=== PATIENT | female | born 1970 ===

== ENCOUNTER 2017-06-27 19:53 | Emergency (ER) | payer OTHER ==
[2017-06-27 19:53] VITALS: BMI 26.2
[2017-06-27 20:09] VITALS: RESP 16; TEMP 97.9
[2017-06-27] MEDS ORDERED: Oxycodone/Acetaminophen 5/325 mg Tab PO STA (21:08)
[2017-06-27] MEDS ORDERED: Oxycodone/Acetaminophen 5/325 mg Tab ONE (21:11)
--- NOTE | 2017-06-27 21:27 | C.PDOC ---
History Of Present Illness 46 year old female presents to the ED c/o right upper arm and shoulder pain for the past week. Patient reports a questionable history of right elbow fracture approximately a year ago. Patient states she feels the elbow fracture might be causing her symptoms today. Patient denies weakness, numbness, injury, fall , trauma. Time Seen by Provider: 06/27/17 20:02 Chief Complaint (Nursing): Upper Extremity Problem/Injury History Per: Patient History/Exam Limitations: no limitations Onset/Duration Of Symptoms: Days Current Symptoms Are (Timing): Still Present Quality: "Pain" Exacerbating Factor(s): Nothing Recent travel outside of the [place]: No Additional History Per: Patient Past Medical History Reviewed: Historical Data, Nursing Documentation, Vital Signs Vital Signs: Last Vital Signs Temp 97.9 F 06/27/17 20:02 Pulse 82 06/27/17 21:28 Resp 16 06/27/17 21:28 BP 158/100 H 06/27/17 21:28 Pulse Ox 99 06/27/17 22:21 - Medical History PMH: No Chronic Diseases Surgical History: No Surg Hx Family History: States: Unknown Family Hx - Social History Hx Alcohol Use: No Hx Substance Use: No - Immunization History Hx Tetanus Toxoid Vaccination: No Hx Influenza Vaccination: No Hx Pneumococcal Vaccination: No Review Of Systems Constitutional: Negative for: Fever, Chills Cardiovascular: Negative for: Chest Pain Respiratory: Negative for: Shortness of Breath Gastrointestinal: Negative for: Nausea Musculoskeletal: Positive for: Shoulder Pain, Arm Pain Skin: Negative for: Rash Neurological: Negative for: Weakness, Numbness Physical Exam - Physical Exam Appears: Non-toxic, No Acute Distress Skin: Normal Color, Warm, Dry Head: Atraumatic, Normacephalic Eye(s): bilateral: Normal Inspection Oral Mucosa: Moist Neck: Normal ROM, Supple Chest: Symmetrical Cardiovascular: Rhythm Regular Respiratory: Normal Breath Sounds, No Rales, No Wheezing Extremity: No Normal ROM (Limited ROM right arm and shoulder secondary to pain) , Tenderness (palpation right shoulder and upper arm), Capillary Refill (< 2 seconds), No Deformity, No Swelling Extremity: Bilateral: Atraumatic, Normal Color And Temperature Pulses: Left Radial: Normal, Right Radial: Normal Neurological/Psych: Oriented x3, Normal Motor, Normal Sensation Gait: Steady ED Course And Treatment O2 Sat by Pulse Oximetry: 99 (On RA) Pulse Ox Interpretation: Normal Progress Note: Patient was given Toradol IM and Valium PO with minimal improvement, patient still c/o moderate pain. Percocet PO was give for the pain and patient was advised to follow up with PMD for further evaluation. X-Ray was not deemed necessary at this time and patient's arm was placed on a sling by the RN Disposition - Disposition Disposition: HOME/ ROUTINE Disposition Time: 21:26 Condition: STABLE Additional Instructions: Please follow up with PMD Take meds as directed Return to ER if worse Prescriptions: Cyclobenzaprine [Cyclobenzaprine HCl] 10 mg PO HS #10 tab Naproxen [Naprosyn] 1 tab PO BID PRN #25 tab PRN Reason: Pain Instructions: Arm Pain (ED) Forms: [employer] (Iranian) Print Language: MARTINIQUAIS - Clinical Impression Clinical Impression: Right arm pain, Right shoulder pain - PA / DRIER FEEDER / Resident Statement MD/DO has reviewed & agrees with the documentation as recorded. - Scribe Statement The provider has reviewed the documentation as recorded by the Scribe Wang Robledo All medical record entries made by the Scribrose were at my direction and personally dictated by me. I have reviewed the chart and agree that the record accurately reflects my personal performance of the history, physical exam, medical decision making, and the department course for this patient. I have also personally directed, reviewed, and agree with the discharge instructions and disposition.
[2017-06-27 21:29] VITALS: BP 158/100; PULSE 82
[2017-06-27 21:30] VITALS: O2SAT 99
== END 2017-06-27 21:34 | disposition home or self-care (01) ==
LOC: C.ER 19:53
DX: M25.511 Pain in right shoulder (principal); M79.601 Pain in right arm
CPT/HCPCS: 96374; 99283; J1885

== ENCOUNTER 2017-11-30 14:17 | Emergency (ER) | payer OTHER ==
[2017-11-30 14:17] VITALS: BMI 26.2
[2017-11-30 14:33] VITALS: BP 160/90; PULSE 77; RESP 20; TEMP 98.5; O2SAT 98
[2017-11-30 15:12] LABS: URINE BACTERIA RARE (<OCC); URINE BILIRUBIN NEGATIVE (NEGATIVE); URINE BLOOD 1+ (NEGATIVE); URINE CLARITY Clear (Clear); URINE COLOR Yellow (YELLOW); URINE GLUCOSE (UA) NORMAL (Normal); URINE LEUKOCYTE ESTERASE NEG Leu/uL (Negative); URINE PROTEIN NEGATIVE (NEGATIVE); URINE UROBILINOGEN NORMAL mg/dL (0.2-1.0)
[2017-11-30 15:14] LABS: HCG,QUALITATIVE URINE NEGATIVE (NEGATIVE)
--- NOTE | 2017-11-30 15:23 | C.PDOC ---
History Of Present Illness 47 year old female presents to the ER with a complaint of right flank pain for the past 4 days, associated with a headache. Patient has been taking tylenol at home with minimal relief. Denies urinary symptoms, recent trauma, heavy lifting , weakness, or numbness. Time Seen by Provider: 11/30/17 14:43 Chief Complaint (Nursing): Back Pain History Per: Patient History/Exam Limitations: no limitations Onset/Duration Of Symptoms: Days Current Symptoms Are (Timing): Still Present Quality Of Discomfort: Unable To Describe Previous Symptoms: None Associated Symptoms: None Exacerbating Factor(s): Nothing Recent travel outside of the [place]: No Past Medical History Reviewed: Historical Data, Nursing Documentation, Vital Signs Vital Signs: Last Vital Signs Temp 98.5 F 11/30/17 14:30 Pulse 77 11/30/17 14:30 Resp 20 11/30/17 14:30 BP 160/90 H 11/30/17 14:30 Pulse Ox 98 11/30/17 15:30 - Medical History PMH: HTN Family History: States: Unknown Family Hx - Social History Hx Alcohol Use: No Hx Substance Use: No - Immunization History Hx Tetanus Toxoid Vaccination: No Hx Influenza Vaccination: No Hx Pneumococcal Vaccination: No Review Of Systems Constitutional: Negative for: Fever, Chills Gastrointestinal: Negative for: Nausea, Vomiting Genitourinary: Negative for: Dysuria, Hematuria Musculoskeletal: Positive for: Back Pain (Right flank) Neurological: Positive for: Headache. Negative for: Weakness, Numbness Physical Exam - Physical Exam Appears: Non-toxic, Other (Uncomfortable) Skin: Normal Color, Warm, Dry Head: Atraumatic, Normacephalic Eye(s): bilateral: Normal Inspection Oral Mucosa: Moist Chest: Symmetrical, No Tenderness Cardiovascular: Rhythm Regular Respiratory: Normal Breath Sounds, No Rales, No Rhonchi, No Wheezing Gastrointestinal/Abdominal: Soft, No Tenderness Back: No CVA Tenderness Neurological/Psych: Oriented x3, Normal Speech, Other (No focal deficits) ED Course And Treatment O2 Sat by Pulse Oximetry: 98 (room air) Pulse Ox Interpretation: Normal Medical Decision Making Medical Decision Making: Impression: 47 year old female with right flank pain. Plan: * CT abd/pel * Blood work * Urinalysis Disposition - Disposition Forms: [employer] (Angolan) - PA / COMBAT CONTROL / Resident Statement MD/DO has reviewed & agrees with the documentation as recorded. - Scribe Statement The provider has reviewed the documentation as recorded by the Scribe Kyle Wilson All medical record entries made by the Nandaibrose were at my direction and personally dictated by me. I have reviewed the chart and agree that the record accurately reflects my personal performance of the history, physical exam, medical decision making, and the department course for this patient. I have also personally directed, reviewed, and agree with the discharge instructions and disposition.
--- NOTE | 2017-11-30 15:32 | C.PDOC ---
History Of Present Illness 47 year old female presents to the ER with a complaint of right flank pain for the past 4 days, associated with a headache. Patient has been taking tylenol at home with minimal relief. Denies urinary symptoms, recent trauma, heavy lifting , weakness, or numbness. Time Seen by Provider: 11/30/17 14:43 Chief Complaint (Nursing): Back Pain History Per: Patient History/Exam Limitations: no limitations Onset/Duration Of Symptoms: Days Current Symptoms Are (Timing): Still Present Quality Of Discomfort: Unable To Describe Previous Symptoms: None Associated Symptoms: None Exacerbating Factor(s): Nothing Recent travel outside of the [place]: No Past Medical History Reviewed: Historical Data, Nursing Documentation, Vital Signs Vital Signs: Last Vital Signs Temp 98.5 F 11/30/17 14:30 Pulse 77 11/30/17 14:30 Resp 20 11/30/17 17:07 BP 160/90 H 11/30/17 14:30 Pulse Ox 98 11/30/17 16:40 - Medical History PMH: HTN Family History: States: Unknown Family Hx - Social History Hx Alcohol Use: No Hx Substance Use: No - Immunization History Hx Tetanus Toxoid Vaccination: No Hx Influenza Vaccination: No Hx Pneumococcal Vaccination: No Review Of Systems Constitutional: Negative for: Fever, Chills Cardiovascular: Negative for: Palpitations Respiratory: Negative for: Cough, Shortness of Breath Gastrointestinal: Positive for: Constipation (2 days). Negative for: Vomiting, Abdominal Pain, Diarrhea Genitourinary: Negative for: Dysuria, Hematuria Musculoskeletal: Positive for: Other (Right flank pain) Neurological: Negative for: Weakness, Numbness Physical Exam - Physical Exam Appears: Non-toxic, Other (Uncomfortable) Skin: Normal Color, Warm, Dry Head: Atraumatic, Normacephalic Eye(s): bilateral: Normal Inspection Oral Mucosa: Moist Neck: Normal ROM Chest: Symmetrical, No Tenderness Cardiovascular: Rhythm Regular, No Murmur Respiratory: Normal Breath Sounds, No Rales, No Rhonchi, No Wheezing Gastrointestinal/Abdominal: Bowel Sounds (active), Soft, No Tenderness, No Distention, No Guarding Back: No CVA Tenderness Extremity: Bilateral: Atraumatic, Normal ROM Neurological/Psych: Oriented x3, Normal Speech, Other (No focal deficits) ED Course And Treatment - Laboratory Results Result Diagrams: 11/30/17 15:42 11/30/17 15:42 O2 Sat by Pulse Oximetry: 98 (Room air) Pulse Ox Interpretation: Normal - CT Scan/US abd/pelvis Other Rad Studies (CT/US): Read By Radiologist, Radiology Report Reviewed CT/US Interpretation: Accession No. : [id number]. Patient Name / ID : JOE TORRES / [id number]. Exam Date : 11/30/2017 15:47:06 ( Approved ). Study Comment : Sex / Age : F / 47Y. Creator : Roseanne Chowdhury. Dictator : Ink Maker : Equipment Operator [employer] : Eitan Watson MD. Approver2 : Report Date : 09/2017 15:51:24. My Comment : . PROCEDURE: CT Abdomen and Pelvis without intravenous contrast. HISTORY: The right-sided flank pain. COMPARISON : None. TECHNIQUE: Technique. Contrast dose: Radiation dose: Total exam DLP = mGy-cm. This CT exam was performed using one or more of the following dose reduction techniques: Automated exposure control, adjustment of the mA and/ or kV according to patient size, and/or use of iterative reconstruction technique. FINDINGS: LOWER THORAX: Lung bases clear. No infiltrate effusion or basilar pneumothorax. Heart size within range of normal. No significant pericardial effusion. There is a tiny hiatal hernia. LIVER: Liver exhibits normal size measuring approximately 16 cm in CC dimension. No obvious hepatic masses or collections seen on this noncontrast study. No significant intrahepatic biliary ductal dilatation. GALLBLADDER AND BILE DUCTS: Gallbladder is physiologically distended. No evidence of intraluminal gallbladder calculi. PANCREAS: Unremarkable. No gross lesion or ductal dilatation. SPLEEN: Unremarkable. ADRENALS: Unremarkable. No mass. KIDNEYS AND URETERS: The kidneys exhibit relatively symmetric size. No evidence of nephrolithiasis or hydronephrosis. No obvious renal masses or collections. VASCULATURE: Unremarkable. No aortic aneurysm. BOWEL: Evaluation of the bowel is limited due to the lack of oral contrast material. Stomach is incompletely distended with food debris liquid and air. Visualized loops of small bowel exhibit normal contour and caliber. No evidence of acute mechanical small bowel obstruction. Stool and air seen throughout the large bowel. No definitive abnormal mural wall thickening. APPENDIX: Normal-appearing appendix best seen on axial image number [id number]. No periappendiceal inflammatory changes. PERITONEUM: Unremarkable. No free fluid. No free air. . There is a moderate-sized fat containing left inguinal hernia. LYMPH NODES: Unremarkable. No enlarged lymph nodes. BLADDER: Urinary bladder is incompletely distended which presumably accounts for slight thick-walled appearance. Rule out cystitis. . Clinical correlation with urinalysis recommended. REPRODUCTIVE: Uterus and adnexal structures appear grossly unremarkable so far as can be seen. BONES: No acute fracture. OTHER FINDINGS : None. IMPRESSION: No acute intra abdominal pathology. No evidence of nephrolithiasis or hydronephrosis. Urinary bladder incompletely cyst distended which presumably accounts for thick-walled appearance. The possibility of a cystitis not excluded. Correlation with urinalysis recommended. No evidence of acute appendicitis. Medical Decision Making Medical Decision Making: Impression: 47 year old female with right flank pain. Plan: * CT abd/pel * Blood work * Urinalysis Progress: Labs reviewed. No leukocytosis or bands. No electrolyte abnormality. Glucose slightly elevated. Urine shows blood. CT IMPRESSION: No acute intra abdominal pathology. No evidence of nephrolithiasis or hydronephrosis. Urinary bladder incompletely cyst distended which presumably accounts for thick-walled appearance. The possibility of a cystitis not excluded. Correlation with urinalysis recommended. No evidence of acute appendicitis. On re-eval, patient is resting on stretcher in no distress. I explained results of labs and CT findings. I provided copy of reports. Patient remained afebrile with stable vital signs. Abdomen soft and non-tender. Patient to be discharged home with Rx. Disposition Counseled Patient/Family Regarding: Diagnosis, Need For Followup, Rx Given - Disposition Referrals: [facility] [Outside] Disposition: HOME/ ROUTINE Disposition Time: 17:00 Condition: STABLE Additional Instructions: Rx sent to [facility] Your labs and CT scan of abdomen were normal Take Pain medicine as needed Follow up with your doctor for further evaluation and care Rx enviado a la farmacia de [facility] laboratorios y tomografa computarizada del abdomen fueron normales [place] el medicamento para el dolor segn sea necesario Enrique un seguimiento con vaughan mdico para marce evaluacin y cuidado adicional Prescriptions: Ibuprofen [Motrin] 600 mg PO Q8 #30 tab Instructions: Low Back Pain (DC) Forms: [employer] (Guamanian) Print Language: TAJIK - POA Present On Arrival: None - Clinical Impression Clinical Impression: Right flank pain - PA / SENIOR SAFETY SUPPORT MANAGER / Resident Statement MD/DO has reviewed & agrees with the documentation as recorded. - Scribe Statement The provider has reviewed the documentation as recorded by the Scribe Kyle Wilson All medical record entries made by the Scribe were at my direction and personally dictated by me. I have reviewed the chart and agree that the record accurately reflects my personal performance of the history, physical exam, medical decision making, and the department course for this patient. I have also personally directed, reviewed, and agree with the discharge instructions and disposition.
[2017-11-30 15:48] LABS: EOS # 0.3 K/uL (0.0-0.7); EOS % 5.9 % (0.0-4.0); HEMOGLOBIN 14.1 g/dL (11.0-16.0); LYMPH # 1.1 K/uL (1.0-4.3); LYMPH % 24.7 % (20.0-40.0); MEAN CORPUSCULAR HEMOGLOBIN 30.2 pg (27.0-31.0); MEAN CORPUSCULAR HGB CONC 34.3 g/dL (33.0-37.0); MONO # 0.7 K/uL (0.0-0.8); MONO % 14.3 % (0.0-10.0); NEUT # 2.5 K/uL (1.8-7.0); NEUT % 54.1 % (50.0-75.0); NRBC % 0.1 % (0.0-2.0); RBC 4.66 Mil/uL (3.80-5.20); RED CELL DISTRIBUTION WIDTH 13.7 % (11.5-14.5); WHITE BLOOD COUNT 4.6 K/uL (4.8-10.8)
[2017-11-30 15:59] LABS: ALB/GLOB RATIO 1.1 (1.0-2.1); ALBUMIN 4.3 g/dL (3.5-5.0); ALT/SGPT 16 U/L (9-52); AST/SGOT 26 U/L (14-36); BLOOD UREA NITROGEN 11 mg/dL (7-17); CALCIUM 9.1 mg/dl (8.6-10.4); GFR AFRICAN-AMERICAN > 60; GFR NON-AFRICAN AMERICAN > 60; LIPASE 69 U/L (23-300)
--- NOTE | 2017-11-30 16:29 | CT ---
PROCEDURE: CT Abdomen and Pelvis without intravenous contrast HISTORY: The right-sided flank pain. COMPARISON: None. TECHNIQUE: Technique. Contrast dose: Radiation dose: Total exam DLP = mGy-cm. This CT exam was performed using one or more of the following dose reduction techniques: Automated exposure control, adjustment of the mA and/or kV according to patient size, and/or use of iterative reconstruction technique. FINDINGS: LOWER THORAX: Lung bases clear. No infiltrate effusion or basilar pneumothorax. Heart size within range of normal. No significant pericardial effusion. There is a tiny hiatal hernia. LIVER: Liver exhibits normal size measuring approximately 16 cm in CC dimension. No obvious hepatic masses or collections seen on this noncontrast study. No significant intrahepatic biliary ductal dilatation GALLBLADDER AND BILE DUCTS: Gallbladder is physiologically distended. No evidence of intraluminal gallbladder calculi. PANCREAS: Unremarkable. No gross lesion or ductal dilatation. SPLEEN: Unremarkable. ADRENALS: Unremarkable. No mass. KIDNEYS AND URETERS: The kidneys exhibit relatively symmetric size. No evidence of nephrolithiasis or hydronephrosis. No obvious renal masses or collections. VASCULATURE: Unremarkable. No aortic aneurysm. BOWEL: Evaluation of the bowel is limited due to the lack of oral contrast material. Stomach is incompletely distended with food debris liquid and air. Visualized loops of small bowel exhibit normal contour and caliber. No evidence of acute mechanical small bowel obstruction. Stool and air seen throughout the large bowel. No definitive abnormal mural wall thickening. APPENDIX: Normal-appearing appendix best seen on axial image number [id number]. No periappendiceal inflammatory changes. PERITONEUM: Unremarkable. No free fluid. No free air. . There is a moderate-sized fat containing left inguinal hernia. LYMPH NODES: Unremarkable. No enlarged lymph nodes. BLADDER: Urinary bladder is incompletely distended which presumably accounts for slight thick-walled appearance. Rule out cystitis. . Clinical correlation with urinalysis recommended. REPRODUCTIVE: Uterus and adnexal structures appear grossly unremarkable so far as can be seen. BONES: No acute fracture. OTHER FINDINGS: None. IMPRESSION: No acute intra abdominal pathology. No evidence of nephrolithiasis or hydronephrosis. Urinary bladder incompletely cyst distended which presumably accounts for thick-walled appearance. The possibility of a cystitis not excluded. Correlation with urinalysis recommended. No evidence of acute appendicitis.
== END 2017-11-30 17:07 | disposition home or self-care (01) ==
LOC: C.ER 14:17
DX: R10.9 Unspecified abdominal pain (principal)

== ENCOUNTER 2018-08-14 14:01 | Outpatient (CLI) | payer OTHER | END 2018-08-14 14:02 | disposition home or self-care (01) | LOC: C.USIC 14:01 | DX: K80.50 Calculus of bile duct without cholangitis or cholecystitis without obstruction (principal) ==